=== PATIENT | male | born 1935 | race Caucasian/White ===

== ENCOUNTER → 2016-09-22 | Outpatient (CLI) | payer MEDICARE, BC | LOC: MW.CHFP 08:00 | PROVIDERS: ATTEND Emergency Medicine | DX: M54.5 Low back pain (principal); G89.29 Other chronic pain | CPT/HCPCS: G0463 ==

== ENCOUNTER → 2016-10-28 | Outpatient (CLI) | payer MEDICARE, BC, OTHER ==
--- NOTE | 2016-10-28 15:46 | CR ---
EXAMINATION: Right shoulder HISTORY: Other lesion COMPARISON: None TECHNIQUE: 3 views FINDINGS/IMPRESSION: There is a high riding right humerus suggesting underlying rotator cuff arthrop athy. Joint space narrowing and osteoarthritic changes are noted within the glenohumeral joint and m oderate acromioclavicular joint osteophytic changes noted. Bone mineralization appears normal withou t an acute osseous abnormality.
== END ==
LOC: MW.CHORTHO 07:57
PROVIDERS: ATTEND Orthopaedic Surgery
DX: M75.81 Other shoulder lesions, right shoulder (principal); M19.011 Primary osteoarthritis, right shoulder; M12.819 Other specific arthropathies, not elsewhere classified, unspecified shoulder; M25.511 Pain in right shoulder
CPT/HCPCS: 73030-26-RT; 73030-RT; G0463

== ENCOUNTER 2019-03-31 15:34 | Emergency (ER) | payer MEDICARE, OTHER ==
[2019-03-31] MEDS ORDERED: Sodium Chloride 0.9% 10 ML Syringe FLUSH PRN (15:59)
[2019-03-31] MEDS ORDERED: Sodium Chloride 0.9% 2.5 ML Syringe FLUSH PRN (15:59)
--- NOTE | 2019-03-31 15:59 | EDM.PDOC ---
ED HPI GENERAL MEDICAL PROBLEM - General Chief Complaint: Cardiovascular Problem Stated Complaint: shortness of breath Time Seen by Provider: 03/31/19 15:47 - History of Present Illness INITIAL COMMENTS - FREE TEXT/NARRATIVE: HISTORY AND PHYSICAL: History of present illness: Patient's an 84-year-old white male with history of pulmonary cancer and right upper lobectomy was approximately 1 week status post stent placement for an infrarenal aortic aneurysm patient has history of COPD and presents today with concern of exertional dyspnea he does not report ever having been told he has congestive heart failure he has had a prior myocardial infarction and was treated conservatively he denies chest pain and on arrival here without exertion states he is absolutely at his baseline and feels fine. Review of systems: As per history of present illness and below otherwise all systems reviewed and negative. Past medical history: As per history of present illness and as reviewed below otherwise noncontributory. Surgical history: As per history of present illness and as reviewed below otherwise noncontributory. Social history: No reported history of drug or alcohol abuse. Family history: As per history of present illness and as reviewed below otherwise noncontributory. Physical exam: HEENT: Atraumatic, normocephalic, pupils reactive, negative for conjunctival pallor or scleral icterus, mucous membranes moist, throat clear, neck supple, nontender, trachea midline. Lungs: Diminished no wheezing rhonchi or crackles, breath sounds equal bilaterally, chest nontender. Heart: S1S2, regular, negative for clicks, rubs, or JVD. Abdomen: Soft, nondistended, nontender. Negative for masses or hepatosplenomegaly. Negative for costovertebral tenderness. Pelvis: Stable nontender. Genitourinary: Deferred. Rectal: Deferred. Extremities: Atraumatic, negative for cords or calf pain. Neurovascular unremarkable. Neuro: Awake, alert, oriented. Cranial nerves II through XII unremarkable. Cerebellum unremarkable. Motor and sensory unremarkable throughout. Exam nonfocal. Diagnostics: CBC CMP troponin PT/INR BNP chest x-ray EKG Therapeutics: IV O2 monitor Impression: #1 exertional dyspnea #2 history of COPD #3 history of right upper lobectomy for pulmonary CVA #4 1 week status post infrarenal aortic aneurysm stent placement Definitive disposition and diagnosis as appropriate pending reevaluation and review of above. Back Pain Score (Numeric/FACES): 2 - Related Data Allergies Allergy/AdvReac Type Severity Reaction Status Date / Time dexamethasone Allergy Cannot Verified 03/31/19 15:46 Remember lorazepam [From Ativan] Allergy Hallucinati Verified 03/31/19 15:46 ons Sulfa (Sulfonamide Allergy unknown Verified 03/31/19 15:46 Antibiotics) Home Meds: Home Meds Allopurinol [Zyloprim] 300 mg PO DAILY 05/01/18 [History] Ascorbic Acid [Vitamin C] 1,000 mg PO DAILY 05/01/18 [History] Aspirin 81 mg PO DAILY 05/01/18 [History] Biotin 1 cap PO DAILY 05/01/18 [History] Ca/D3/Mag/Zinc/Ashlee/Nahun/Mgbor [Caltrate 600-D3-Min Chew Tab] 1 tab PO DAILY [History] Cholecalciferol (Vitamin D3) [Vitamin D] 5,000 units PO DAILY 05/01/18 [History] Cholesterol Success 2 tab PO BID 05/01/18 [History] Detoxin V/Chorella 2 cap PO DAILY 05/01/18 [History] Furosemide 0.5 dose PO DAILY 05/01/18 [History] Losartan [Cozaar] 100 mg PO DAILY 05/01/18 [History] Magnesium Oxide [Magnesium] 400 mg PO DAILY 05/01/18 [History] Mentor-3 Fatty Acids [Mentor-3] 1 dose PO DAILY 05/01/18 [History] Prednisolone Acetate/Pf [Prednisolone Acet 1% Eye Drop] 1 drop TOP ASDIRECTED [History] Sertraline [Zoloft] 1 dose PO DAILY 05/01/18 [History] atorvaSTATin [Lipitor] 20 mg PO BEDTIME 05/01/18 [History] oxyCODONE HCl/Acetaminophen [Oxycodone-Acetaminophen 5-325] 1 tab PO Q4HR PRN [History] Past Medical History HEENT History: Reports: Cataract, Hard of Hearing Cardiovascular History: Reports: CAD, Heart Valve Replacement, Hypertension, Stents Respiratory History: Reports: Other (See Below) Other Respiratory History: Lung Cancer s/p Right Upper Lobectomy Gastrointestinal History: Reports: None Genitourinary History: Reports: Other (See Below) Other Genitourinary History: Born with one kidney Musculoskeletal History: Reports: Arthritis Neurological History: Reports: None Psychiatric History: Reports: Panic Attack Endocrine/Metabolic History: Reports: None Hematologic History: Reports: None Immunologic History: Reports: None Oncologic (Cancer) History: Reports: Lung Dermatologic History: Reports: Psoriasis - Infectious Disease History Infectious Disease History: Reports: Chicken Pox, Measles - Past Surgical History Head Surgeries/Procedures: Reports: None HEENT Surgical History: Reports: Cataract Surgery Cardiovascular Surgical History: Reports: Coronary Artery Stent, Valve Replacement Respiratory Surgical History: Reports: Lung Resection GI Surgical History: Reports: None Male Surgical History: Reports: None Endocrine Surgical History: Reports: None Neurological Surgical History: Reports: Other (See Below) Musculoskeletal Surgical History: Reports: Hip Replacement, Knee Replacement, Shoulder Surgery Oncologic Surgical History: Reports: Other (See Below) Other Oncologic Surgeries/Procedures: right upper lobectomy Social & Family History - Family History Family Medical History: Noncontributory - Tobacco Use Smoking Status *Q: Unknown Ever Smoked - Caffeine Use Caffeine Use: Reports: None Other Caffeine Use: 2-3 cups in morning - Recreational Drug Use Recreational Drug Use: No ED ROS GENERAL - Review of Systems Review Of Systems: ROS reveals no pertinent complaints other than HPI. ED EXAM, GENERAL - Physical Exam Exam: See Below (Dictation) Course - Vital Signs Last Recorded V/S: Last Vital Signs Temp 36.3 C 03/31/19 15:43 Pulse 75 03/31/19 17:22 Resp 18 03/31/19 17:22 BP 153/76 H 03/31/19 17:22 Pulse Ox 95 03/31/19 17:22 - Orders/Labs/Meds Orders: Active Orders 24 hr Category Date Time Status Cardiac Monitoring [RC] . DIRECTED Care 03/31/19 15:59 Active EKG Documentation Completion [RC] STAT Care 03/31/19 15:39 Active Oxygen Therapy, ED [RC] ASDIRECTED Care 03/31/19 15:59 Active Chest 2V [CR] Stat Exams 03/31/19 15:39 Taken UA RFX ANNE AND CULT IF INDIC [URIN] Stat Lab 03/31/19 15:39 Ordered Sodium Chloride 0.9% [Saline Flush] Med 03/31/19 15:59 Active 10 ml FLUSH ASDIRECTED PRN Sodium Chloride 0.9% [Saline Flush] Med 03/31/19 15:59 Active 2.5 ml FLUSH ASDIRECTED PRN Saline Lock Insert [OM.PC] Stat Oth 03/31/19 15:59 Ordered Medication Orders Sodium Chloride (Saline Flush) 10 ml FLUSH ASDIRECTED PRN PRN Reason: Keep Vein Open Sodium Chloride (Saline Flush) 2.5 ml FLUSH ASDIRECTED PRN PRN Reason: Keep Vein Open Labs: Laboratory Tests 03/31/19 03/31/19 03/31/19 Range/Units 15:45 15:45 15:45 WBC 8.00 (4.0-11.0) K/uL RBC 4.01 L (4.50-5.90) M/uL Hgb 12.5 L (13.0-17.0) g/dL Hct 38.6 (38.0-50.0) % MCV 96.3 (80.0-98.0) fL MCH 31.2 (27.0-32.0) pg MCHC 32.4 (31.0-37.0) g/dL RDW Std Deviation 51.9 (28.0-62.0) fl RDW Coeff of So 15 (11.0-15.0) % Plt Count 240 (150-400) K/uL MPV 8.80 (7.40-12.00) fL Neut % (Auto) 66.3 (48.0-80.0) % Lymph % (Auto) 18.5 (16.0-40.0) % [place] % (Auto) 12.4 (0.0-15.0) % Eos % (Auto) 2.5 (0.0-7.0) % Baso % (Auto) 0.3 (0.0-1.5) % Neut # (Auto) 5.3 (1.4-5.7) K/uL Lymph # (Auto) 1.5 (0.6-2.4) K/uL [place] # (Auto) 1.0 H (0.0-0.8) K/uL Eos # (Auto) 0.2 (0.0-0.7) K/uL Baso # (Auto) 0.0 (0.0-0.1) K/uL Nucleated RBC % 0.0 /100WBC Nucleated RBCs # 0 K/uL Sodium 139 (136-148) mmol/L Potassium 3.8 (3.5-5.1) mmol/L Chloride 101 (98-107) mmol/L Carbon Dioxide 26.5 (21.0-32.0) mmol/L BUN 20 H (7.0-18.0) mg/dL Creatinine 1.4 H (0.8-1.3) mg/dL Est Cr Clr Drug Dosing 38.68 mL/min Estimated GFR (MDRD) 48.4 ml/min Glucose 88 (74-106) mg/dL Calcium 9.1 (8.5-10.1) mg/dL Total Bilirubin 0.4 (0.2-1.0) mg/dL AST 33 (15-37) IU/L ALT 23 (14-63) IU/L Alkaline Phosphatase 71 (46-116) U/L Troponin I 1.671 H* (0.000-0.056) ng/mL B-Natriuretic Peptide 1094 H (<100) PG/ML Total Protein 8.2 (6.4-8.2) g/dL Albumin 3.3 L (3.4-5.0) g/dL Globulin 4.9 H (2.6-4.0) g/dL Albumin/Globulin Ratio 0.7 L (0.9-1.6) Meds: Medications Generic Name Dose Route Start Last Admin Trade Name Freq PRN Reason Stop Dose Admin Sodium Chloride 10 ml 03/31/19 15:59 Saline Flush FLUSH ASDIRECTED PRN Keep Vein Open Sodium Chloride 2.5 ml 03/31/19 15:59 Saline Flush FLUSH ASDIRECTED PRN Keep Vein Open Discontinued Medications Generic Name Dose Route Start Last Admin Trade Name Freq PRN Reason Stop Dose Admin Furosemide 40 mg 03/31/19 17:14 03/31/19 17:22 Lasix IVPUSH 03/31/19 17:15 40 mg NOW ONE Administration Departure - Departure Time of Disposition: 17:42 Disposition: DC/Tfer to Acute Hospital 02 Reason for Transfer *Q: Other Condition: Good Clinical Impression: Congestive heart failure, Abnormal EKG, Elevated troponin Referrals: Denys Eisenberg MD [Primary Care Provider] - Forms: ED Department Discharge - My Orders Last 24 Hours: My Active Orders 03/31/19 15:59 Cardiac Monitoring [RC] . DIRECTED Oxygen Therapy, ED [RC] ASDIRECTED Sodium Chloride 0.9% [Saline Flush] 10 ml FLUSH ASDIRECTED PRN Sodium Chloride 0.9% [Saline Flush] 2.5 ml FLUSH ASDIRECTED PRN Saline Lock Insert [OM.PC] Stat - Assessment/Plan Last 24 Hours: My Active Orders 03/31/19 15:59 Cardiac Monitoring [RC] . DIRECTED Oxygen Therapy, ED [RC] ASDIRECTED Sodium Chloride 0.9% [Saline Flush] 10 ml FLUSH ASDIRECTED PRN Sodium Chloride 0.9% [Saline Flush] 2.5 ml FLUSH ASDIRECTED PRN Saline Lock Insert [OM.PC] Stat
[2019-03-31 16:49] LABS: CARBON DIOXIDE,CO2 26.5 mmol/L (21.0-32.0); POTASSIUM,K 3.8 mmol/L (3.5-5.1)
[2019-03-31] MEDS ORDERED: Furosemide 40 MG/4 ML VIAL IVPUSH ONE (17:14)
[2019-03-31 17:32] VITALS: PULSE 75
--- NOTE | 2019-03-31 17:50 | CR ---
Chest: Two views of the chest were obtained. Comparison: Previous chest x-ray of 05/01/18. Heart size is within normal limits. Elevated right hemidiaphragm is seen which is a stable finding. Heart size is slightly prominent. Previous sternotomy is noted. Atherosclerotic calcification is seen within the aortic knob. Lungs show no acute parenchymal change. Minimal blunting of the lateral left costophrenic angle is seen believed to be stable. Impression: Findings as noted above. Nothing acute is identified. Diagnostic code #2 MTDD
[2019-03-31] MEDS ORDERED: Heparin Sod,Pork In 0.45% Nacl 25,000 UNIT/500 ML IV.SOLN IV SCH (18:15)
[2019-03-31 18:28] VITALS: BP 145/78
== END 2019-03-31 18:47 ==
LOC: MW.ED 15:34
DX: I11.0 Hypertensive heart disease with heart failure (principal); I50.9 Heart failure, unspecified; R94.31 Abnormal electrocardiogram [ECG] [EKG]; R79.89 Other specified abnormal findings of blood chemistry; J44.9 Chronic obstructive pulmonary disease, unspecified; I25.2 Old myocardial infarction; I25.10 Atherosclerotic heart disease of native coronary artery without angina pectoris; H26.9 Unspecified cataract; M19.90 Unspecified osteoarthritis, unspecified site; Z88.2 Allergy status to sulfonamides; Z88.8 Allergy status to other drugs, medicaments and biological substances; Z98.890 Other specified postprocedural states; Z90.2 Acquired absence of lung [part of]; Z95.5 Presence of coronary angioplasty implant and graft; Z95.2 Presence of prosthetic heart valve; Z79.899 Other long term (current) drug therapy; Z79.82 Long term (current) use of aspirin; Z85.118 Personal history of other malignant neoplasm of bronchus and lung
CPT/HCPCS: 71046; 80053; 81001; 83880; 84484; 85025; 93005; 96365; 96375; 99285; J1644; J1940

== ENCOUNTER 2019-07-01 11:28 | Emergency (ER) | payer MEDICARE, OTHER ==
[~2019-07-01 11:28] MED LIST: fentaNYL 100 MCG/2 ML SDV ONE
[2019-07-01] MEDS ORDERED: EPINEPHrine 1:10,000 1 MG/10 ML Syringe IVPUSH ONE (11:29)
[2019-07-01] MEDS ORDERED: EPINEPHrine 1 MG/1 ML Amp IV ONE (11:29)
[2019-07-01] MEDS ORDERED: Aspirin 81 MG Tab.Chew ONE (11:30)
[2019-07-01] MEDS ORDERED: Sodium Chloride 0.9% 10 ML Syringe FLUSH PRN (11:35)
[2019-07-01] MEDS ORDERED: Sodium Chloride 0.9% 2.5 ML Syringe FLUSH PRN (11:35)
[2019-07-01] MEDS ORDERED: Sodium Chloride 0.9% 1,000 ML IV ONE (11:35)
[2019-07-01] MEDS ORDERED: Calcium Chloride 10% 1 GM/10 ML Syringe IVPUSH ONE (11:42)
[2019-07-01] MEDS ORDERED: fentaNYL 50 MCG/ML SDV IVPUSH ONE (11:42)
[2019-07-01] MEDS ORDERED: Atropine 0.1 MG/ML 10 ML Syringe IVPUSH ONE (11:42)
--- NOTE | 2019-07-01 12:14 | CR ---
Chest: Portable view of the chest was obtained. Comparison: Prior chest x-ray of 03/31/19. Heart size and mediastinum are within normal limits. Prior sternotomy is seen. Lungs are clear with no acute parenchymal change. Previous left shoulder surgery is noted. Impression: 1. Nothing acute is seen on portable chest x-ray. Diagnostic code #2 This report was dictated in [place] Standard Time
[2019-07-01] MEDS ORDERED: EPINEPHrine 1 MG in Dextrose 5% in Water 99 ML IV SCH ×2 (12:15)
[2019-07-01 12:19] LABS: BLOOD UREA NITROGEN,BUN 42 mg/dL (7.0-18.0); CARBON DIOXIDE,CO2 25.2 mmol/L (21.0-32.0); CHLORIDE,CL 104 mmol/L (98-107); GLUCOSE RANDOM 105 mg/dL (74-106); POTASSIUM,K 4.8 mmol/L (3.5-5.1); SODIUM,NA 139 mmol/L (136-148)
[2019-07-01 12:36] VITALS: BP 90/67; PULSE 60
[2019-07-01] MEDS ORDERED: Heparin Sod,Pork In 0.45% Nacl 25,000 UNIT/500 ML IV.SOLN IV SCH (12:45)
--- NOTE | 2019-07-01 13:03 | EDM.PDOC ---
ED [facility] GENERAL MEDICAL PROBLEM - General Chief Complaint: Cardiovascular Problem Stated Complaint: BROUGHT IN VIA AMBULANCE Time Seen by Provider: 07/01/19 11:30 Source of Information: Reports: Patient, Family History Limitations: Reports: No Limitations - History of Present Illness INITIAL COMMENTS - FREE TEXT/NARRATIVE: Pt is a 84 yo M with hx of CAD, CHF, CKD complaining of dizziness x 4 hours. Pt states he feels like he is going to pass out. Pt denies any chest pain, shortness of breath or abdominal pain. Onset was at rest. Per EMS, when they arrived, he was hypotensive with BP in 60/40s and bradycardic with rate in the 40s. He was AAOX3 but did not respond to atropine x 2 doses. They attempted to transcutaneously pace him with no capture. Pt transferred to the ED with minimal improvement with BP. Pt on arrival was mildly confused but able to provide some hx. Per family, he was recently seen by cardiology for an PR and had stents placed last month. In addition to that documented in the HPI above, the additional ROS was obtained : Constitutional: Denies fevers or chills Eyes: Denies vision changes ENMT: Denies sore throat CV: Denies chest pain Resp: Denies SOB GI: Denies vomiting or diarrhea : Denies painful urination MSK: Denies recent trauma Skin: Denies new rashes Neuro: Denies new numbness or tingling or weakness Endocrine: Denies unexpected weight loss Heme: Denies bleeding disorders I have reviewed the triage vital signs Const: Well nourished, well developed, appears stated age. Mild confusion Eyes: PERRL, no conjunctival injection HENT: NCAT, Neck supple without meningismus . No JVD CV: RRR, Warm, well-perfused extremities RESP: CTAB, Unlabored respiratory effort GI: soft, non-tender, non-distended, no masses MSK: No gross deformities appreciated Skin: Cool extremities. dry. No rashes Neuro: Alert, delivery representative II-XII grossly intact. Sensation and motor function of extremities grossly intact. Psych: Appropriate mood and affect Critical Care Procedure Note Authorized and Performed by: Dr. Vergara Total critical care time: Approximately 45 minutes Due to a high probability of clinically significant, life threatening deterioration, the patient required my highest level of preparedness to intervene emergently and I personally spent this critical care time directly and personally managing the patient. This critical care time included obtaining a history; examining the patient; pulse oximetry; ordering and review of studies ; arranging urgent treatment with development of a management plan; evaluation of patient's response to treatment; frequent reassessment; and, discussions with other providers. This critical care time was performed to assess and manage the high probability of imminent, life-threatening deterioration that could result in multi-organ failure. It was exclusive of separately billable procedures and treating other patients and teaching time. Please see MDM section and the rest of the note for further information on patient assessment and treatment. Assessment and plan: Patient is an 84-year-old male presenting with dizziness. Patient was initially hypotensive and bradycardic. Patient was given 0.5 mg of atropine without any improvement. Patient was subsequently given 1 g of calcium in case EKG changes were related to hyperkalemia. There is minimal improvement with these interventions and therefore the patient was started on an epinephrine drip. There is a delay in get the epinephrine drip from pharmacy and therefore a drip had to be created from 1 mg of epinephrine placed in 1 L of normal saline. Patient was started at 1.0 mcg/hr. Patient's heart rate and blood pressure improved into the heart rate of in the 70s and blood pressure in the 150s over 80s. Serial EKGs were performed and not demonstrate any evidence of ST elevation myocardial infarction. Labs came back and demonstrated elevated troponin at 0.206. Patient was given aspirin and started on a heparin drip. In addition, given the patient's requirement for pressors, the a left femoral triple-lumen central venous catheter was placed. This case was discussed with emergency medicine physician at [place], Dr. Murrieta who accepted the patient. Final diagnosis was NSTEMI and given patient's critical condition the patient was transferred to [facility] for cardiology. Other differential diagnosis include pulmonary embolism which seems less likely given patient's EKG and junctional rhythm. Sepsis was considered however it also seems less likely given the patient's cool extremities and bradycardia. In addition, patient was not hyperthermic. Patient was transferred without any deterioration. Back Pain Score (Numeric/FACES): 7 - Related Data Allergies Allergy/AdvReac Type Severity Reaction Status Date / Time dexamethasone Allergy Cannot Verified 07/01/19 12:19 Remember lorazepam [From Ativan] Allergy Hallucinati Verified 07/01/19 12:19 ons Sulfa (Sulfonamide Allergy unknown Verified 07/01/19 12:19 Antibiotics) Home Meds: Home Meds Aspirin 81 mg PO DAILY 05/01/18 [History] Furosemide 20 mg PO DAILY PRN 05/01/18 [History] Prednisolone Acetate/Pf [Prednisolone Acet 1% Eye Drop] 1 drop EYEBOTH DAILY [History] Sertraline [Zoloft] 100 mg PO DAILY 05/01/18 [History] Albuterol Sulfate [Albuterol Sulfate Hfa] 2 puff INH Q4H PRN 07/01/19 [History] Clopidogrel [Plavix] 75 mg PO DAILY 07/01/19 [History] Cyclobenzaprine [Flexeril] 10 mg PO TID PRN 07/01/19 [History] Lactulose [Chronulac] 30 ml PO DAILY PRN 07/01/19 [History] Melatonin 3 mg PO BEDTIME PRN 07/01/19 [History] Metoprolol Succinate [Toprol XL] 12.5 mg PO DAILY 07/01/19 [History] Propylene Glycol/PEG 400/Pf [Systane 0.3-0.4% Eye Drops] 2 drop EYEBOTH Q4H PRN 07/01/19 [History] Rosuvastatin [Crestor] 20 mg PO BEDTIME 07/01/19 [History] oxyCODONE HCl/Acetaminophen [Endocet 7.5-325 mg Tablet] 1 tab PO BID PRN [History] Past Medical History HEENT History: Reports: Cataract, Hard of Hearing Cardiovascular History: Reports: CAD, Heart Valve Replacement, Hypertension, Stents Respiratory History: Reports: Other (See Below) Other Respiratory History: Lung Cancer s/p Right Upper Lobectomy Gastrointestinal History: Reports: None Genitourinary History: Reports: Other (See Below) Other Genitourinary History: Born with one kidney Musculoskeletal History: Reports: Arthritis Neurological History: Reports: None Psychiatric History: Reports: Panic Attack Endocrine/Metabolic History: Reports: None Hematologic History: Reports: None Immunologic History: Reports: None Oncologic (Cancer) History: Reports: Lung Dermatologic History: Reports: Psoriasis - Infectious Disease History Infectious Disease History: Reports: Chicken Pox, Measles, Mumps - Past Surgical History Head Surgeries/Procedures: Reports: None HEENT Surgical History: Reports: Cataract Surgery Cardiovascular Surgical History: Reports: Coronary Artery Stent, Valve Replacement Respiratory Surgical History: Reports: Lung Resection GI Surgical History: Reports: None Male Surgical History: Reports: None Endocrine Surgical History: Reports: None Neurological Surgical History: Reports: Other (See Below) Musculoskeletal Surgical History: Reports: Hip Replacement, Knee Replacement, Shoulder Surgery Oncologic Surgical History: Reports: Other (See Below) Other Oncologic Surgeries/Procedures: right upper lobectomy Social & Family History - Family History Family Medical History: Noncontributory - Tobacco Use Smoking Status *Q: Never Smoker Second Hand Smoke Exposure: No - Caffeine Use Caffeine Use: Reports: None Other Caffeine Use: 2-3 cups in morning - Recreational Drug Use Recreational Drug Use: No ED ROS GENERAL - Review of Systems Review Of Systems: See Below ED EXAM, GENERAL - Physical Exam Exam: See Below ED CARDIOLOGY PROCEDURES - Additional/Other Procedure(s) Other (Free Text) Procedure(s): Procedure note: Central venous line Location: Left femoral vein Candidate vein examined with linear array probe - confirmed collapsibility, lack of pulsatility, and proper anatomic location. 5 cc local anesthesia provided via infiltration of 1% lidocaine w/o epi Using aseptic technique, IV catheter inserted with flash of blood noted, flow of venous blood confirmed. Flushes easily and without pain. Venous blood gas confirms placement .no hematoma or complications noted. Patient tolerated well. Course - Vital Signs Last Recorded V/S: Last Vital Signs Temp 35.3 C 07/01/19 12:00 Pulse 60 07/01/19 12:22 Resp 18 07/01/19 12:00 BP 90/67 07/01/19 12:22 Pulse Ox 90 L 07/01/19 12:22 - Orders/Labs/Meds Orders: Active Orders 24 hr Category Date Time Status EKG Documentation Completion [RC] STAT Care 07/01/19 11:43 Active Insert Menendez Catheter [Insert Urinary Catheter] [OM.PC] Care 07/01/19 12:30 Ordered Q24H Urinary Catheter Assessment [RC] ASDIRECTED Care 07/01/19 14:04 Active EPINEPHrine [Adrenalin] 1 mg Med 07/01/19 12:15 Active Dextrose 5% in Water 99 ml IV TITRATE Heparin Sod,Pork In 0.45% Nacl [Heparin-1/2Ns 25,000 Med 07/01/19 12:45 Active Units/500] 25,000 unit in 500 ml IV TITRATE Sodium Chloride 0.9% [Saline Flush] Med 07/01/19 11:35 Active 10 ml FLUSH ASDIRECTED PRN Sodium Chloride 0.9% [Saline Flush] Med 07/01/19 11:35 Active 2.5 ml FLUSH ASDIRECTED PRN Saline Lock Insert [OM.PC] Stat Oth 07/01/19 11:35 Ordered Medication Orders Epinephrine HCl 1 mg/ Dextrose (/Water) 100 mls @ 58.8 mls/hr IV TITRATE CYDNEY; Protocol Last Admin: 07/01/19 12:48 Dose: 0.1 mcg/kg/min, 58.8 mls/hr Heparin Sodium/Sodium Chloride (Heparin-1/2ns 25,000 Units/500) 25,000 unit in 500 mls @ 23.52 mls/hr IV TITRATE CYDNEY; Protocol Last Admin: 07/01/19 12:47 Dose: 12 units/kg/hr, 23.52 mls/hr Sodium Chloride (Saline Flush) 10 ml FLUSH ASDIRECTED PRN PRN Reason: Keep Vein Open Last Admin: 07/01/19 12:47 Dose: 10 ml Sodium Chloride (Saline Flush) 2.5 ml FLUSH ASDIRECTED PRN PRN Reason: Keep Vein Open Last Admin: 07/01/19 12:47 Dose: 2.5 ml Labs: Laboratory Tests 07/01/19 07/01/19 07/01/19 Range/Units 11:30 11:30 11:30 WBC 7.59 (4.0-11.0) K/uL RBC 4.02 L (4.50-5.90) M/uL Hgb 12.4 L (13.0-17.0) g/dL Hct 38.5 (38.0-50.0) % MCV 95.8 (80.0-98.0) fL MCH 30.8 (27.0-32.0) pg MCHC 32.2 (31.0-37.0) g/dL RDW Std Deviation 51.9 (28.0-62.0) fl RDW Coeff of So 15 (11.0-15.0) % Plt Count 186 (150-400) K/uL MPV 9.40 (7.40-12.00) fL Neut % (Auto) 62.6 (48.0-80.0) % Lymph % (Auto) 25.8 (16.0-40.0) % Jennings % (Auto) 9.1 (0.0-15.0) % Eos % (Auto) 2.2 (0.0-7.0) % Baso % (Auto) 0.3 (0.0-1.5) % Neut # (Auto) 4.8 (1.4-5.7) K/uL Lymph # (Auto) 2.0 (0.6-2.4) K/uL Jennings # (Auto) 0.7 (0.0-0.8) K/uL Eos # (Auto) 0.2 (0.0-0.7) K/uL Baso # (Auto) 0.0 (0.0-0.1) K/uL Nucleated RBC % 0.0 /100WBC Nucleated RBCs # 0 K/uL INR 1.06 Sodium 139 (136-148) mmol/L Potassium 4.8 (3.5-5.1) mmol/L Chloride 104 (98-107) mmol/L Carbon Dioxide 25.2 (21.0-32.0) mmol/L BUN 42 H (7.0-18.0) mg/dL Creatinine 2.2 H (0.8-1.3) mg/dL Est Cr Clr Drug Dosing TNP Estimated GFR (MDRD) 28.7 ml/min Glucose 105 (74-106) mg/dL Calcium 9.1 (8.5-10.1) mg/dL Total Bilirubin 0.4 (0.2-1.0) mg/dL AST 23 (15-37) IU/L ALT 28 (14-63) IU/L Alkaline Phosphatase 55 (46-116) U/L Troponin I 0.206 H* (0.000-0.056) ng/mL Total Protein 7.1 (6.4-8.2) g/dL Albumin 3.4 (3.4-5.0) g/dL Globulin 3.7 (2.6-4.0) g/dL Albumin/Globulin Ratio 0.9 (0.9-1.6) Urine Color Urine Appearance Urine pH (5.0-8.0) Ur Specific Garrison (1.001-1.035) Urine Protein (NEGATIVE) mg/dL Urine Glucose (UA) (NEGATIVE) mg/dL Urine Ketones (NEGATIVE) mg/dL Urine Occult Blood (NEGATIVE) Urine Nitrite (NEGATIVE) Urine Bilirubin (NEGATIVE) Urine Urobilinogen (<2.0) EU/dL Ur Leukocyte Esterase (NEGATIVE) Urine RBC (0-2/HPF) Urine WBC (0-5/HPF) Ur Epithelial Cells (NONE-FEW) Urine Bacteria (NEGATIVE) 07/01/19 Range/Units 13:10 WBC (4.0-11.0) K/uL RBC (4.50-5.90) M/uL Hgb (13.0-17.0) g/dL Hct (38.0-50.0) % MCV (80.0-98.0) fL MCH (27.0-32.0) pg MCHC (31.0-37.0) g/dL RDW Std Deviation (28.0-62.0) fl RDW Coeff of So (11.0-15.0) % Plt Count (150-400) K/uL MPV (7.40-12.00) fL Neut % (Auto) (48.0-80.0) % Lymph % (Auto) (16.0-40.0) % Jennings % (Auto) (0.0-15.0) % Eos % (Auto) (0.0-7.0) % Baso % (Auto) (0.0-1.5) % Neut # (Auto) (1.4-5.7) K/uL Lymph # (Auto) (0.6-2.4) K/uL Jennings # (Auto) (0.0-0.8) K/uL Eos # (Auto) (0.0-0.7) K/uL Baso # (Auto) (0.0-0.1) K/uL Nucleated RBC % /100WBC Nucleated RBCs # K/uL INR Sodium (136-148) mmol/L Potassium (3.5-5.1) mmol/L Chloride (98-107) mmol/L Carbon Dioxide (21.0-32.0) mmol/L BUN (7.0-18.0) mg/dL Creatinine (0.8-1.3) mg/dL Est Cr Clr Drug Dosing Estimated GFR (MDRD) ml/min Glucose (74-106) mg/dL Calcium (8.5-10.1) mg/dL Total Bilirubin (0.2-1.0) mg/dL AST (15-37) IU/L ALT (14-63) IU/L Alkaline Phosphatase (46-116) U/L Troponin I (0.000-0.056) ng/mL Total Protein (6.4-8.2) g/dL Albumin (3.4-5.0) g/dL Globulin (2.6-4.0) g/dL Albumin/Globulin Ratio (0.9-1.6) Urine Color YELLOW Urine Appearance CLEAR Urine pH 6.0 (5.0-8.0) Ur Specific Garrison 1.025 (1.001-1.035) Urine Protein 30 H (NEGATIVE) mg/dL Urine Glucose (UA) NEGATIVE (NEGATIVE) mg/dL Urine Ketones NEGATIVE (NEGATIVE) mg/dL Urine Occult Blood NEGATIVE (NEGATIVE) Urine Nitrite NEGATIVE (NEGATIVE) Urine Bilirubin NEGATIVE (NEGATIVE) Urine Urobilinogen 0.2 (<2.0) EU/dL Ur Leukocyte Esterase NEGATIVE (NEGATIVE) Urine RBC 0-3 (0-2/HPF) Urine WBC 0-3 (0-5/HPF) Ur Epithelial Cells FEW (NONE-FEW) Urine Bacteria FEW (NEGATIVE) Meds: Medications Generic Name Dose Route Start Last Admin Trade Name Freq PRN Reason Stop Dose Admin Epinephrine HCl 1 mg/ Dextrose 100 mls @ 58.8 mls/hr 07/01/19 12:15 07/01/19 12:48 /Water IV 0.1 mcg/kg/min TITRATE CYDNEY 58.8 mls/hr Administration Protocol 0.1 MCG/KG/MIN Heparin Sodium/Sodium Chloride 25,000 unit in 500 mls @ 23.52 mls/hr 07/01/19 12:45 07/01/19 12:47 Heparin-1/2ns 25,000 Units/500 IV 12 units/kg/hr TITRATE CYDNEY 23.52 mls/hr Administration Protocol 12 UNITS/KG/HR Sodium Chloride 10 ml 07/01/19 11:35 07/01/19 12:47 Saline Flush FLUSH 10 ml ASDIRECTED PRN Administration Keep Vein Open Sodium Chloride 2.5 ml 07/01/19 11:35 07/01/19 12:47 Saline Flush FLUSH 2.5 ml ASDIRECTED PRN Administration Keep Vein Open Discontinued Medications Generic Name Dose Route Start Last Admin Trade Name Vinicius PRN Reason Stop Dose Admin Aspirin Confirm 07/01/19 11:30 07/01/19 12:48 Aspirin Administered 07/01/19 11:31 324 mg Dose Administration 324 mg .ROUTE .STK-MED ONE Atropine Sulfate 0.5 mg 07/01/19 11:42 07/01/19 12:46 Atropine 0.1 Mg/Ml IVPUSH 07/01/19 11:43 0.5 mg ONETIME ONE Administration Calcium Chloride 1 gm 07/01/19 11:42 07/01/19 14:04 Calcium Chloride 10% IVPUSH 07/01/19 11:43 1 gm ONETIME ONE Administration Epinephrine HCl 1 mg 07/01/19 11:29 Epinephrine 1:10,000 IVPUSH 07/01/19 11:30 .STK-MED ONE Epinephrine HCl 1 mg 07/01/19 11:29 Adrenalin IV 07/01/19 11:30 .STK-MED ONE Fentanyl 100 mcg 07/01/19 11:42 07/01/19 12:48 Fentanyl IVPUSH 07/01/19 11:43 Not Given ONETIME ONE Fentanyl Confirm 07/01/19 11:28 07/01/19 12:46 Sublimaze Administered 07/01/19 11:29 50 mcg Dose Administration 100 mcg .ROUTE .STK-MED ONE Sodium Chloride 1,000 mls @ 999 mls/hr 07/01/19 11:35 07/01/19 12:48 Normal Saline IV 07/01/19 12:35 999 mls/hr .Bolus ONE Administration Departure - Departure Time of Disposition: 13:02 Disposition: DC/Tfer to Acute Hospital 02 Preliminary Cause of *Q: Other_Special Instruction Reason for Transfer *Q: Other Clinical Impression: NSTEMI (non-ST elevated myocardial infarction) Instructions: Heart Attack Referrals: PCP,Unknown [Primary Care Provider] - Forms: ED Department Discharge Sepsis Event Note - Evaluation Sepsis Screening Result: No Definite Risk - Focused Exam Vital Signs: Vital Signs Temp Pulse Resp BP Pulse Ox 07/01/19 12:22 60 90/67 90 L 07/01/19 12:11 87 151/125 H 99 07/01/19 12:05 49 L 150/117 H 86 L 07/01/19 12:00 35.3 C 40 L 18 129/106 H 95 07/01/19 11:57 52 L 156/73 H 99 07/01/19 11:53 72 122/68 80 L 07/01/19 11:45 53 L 119/59 L 89 L 07/01/19 11:38 52 L 96/51 L 99 07/01/19 11:32 48 L 67/36 L 99 Date Exam was Performed: 07/01/19 Time Exam was Performed: 16:50 - Problem List Review Problem List Initiated/Reviewed/Updated: Yes - My Orders Last 24 Hours: My Active Orders 07/01/19 11:35 Sodium Chloride 0.9% [Saline Flush] 10 ml FLUSH ASDIRECTED PRN Sodium Chloride 0.9% [Saline Flush] 2.5 ml FLUSH ASDIRECTED PRN Saline Lock Insert [OM.PC] Stat 07/01/19 11:43 EKG Documentation Completion [RC] STAT 07/01/19 12:15 EPINEPHrine [Adrenalin] 1 mg Dextrose 5% in Water 99 ml IV TITRATE 07/01/19 12:30 Insert Menendez Catheter [Insert Urinary Catheter] [OM.PC] Q24H 07/01/19 12:45 Heparin Sod,Pork In 0.45% Nacl [Heparin-1/2Ns 25,000 Units/500] 25,000 unit in 500 ml IV TITRATE 07/01/19 14:04 Urinary Catheter Assessment [RC] ASDIRECTED - Assessment/Plan Last 24 Hours: My Active Orders 07/01/19 11:35 Sodium Chloride 0.9% [Saline Flush] 10 ml FLUSH ASDIRECTED PRN Sodium Chloride 0.9% [Saline Flush] 2.5 ml FLUSH ASDIRECTED PRN Saline Lock Insert [OM.PC] Stat 07/01/19 11:43 EKG Documentation Completion [RC] STAT 07/01/19 12:15 EPINEPHrine [Adrenalin] 1 mg Dextrose 5% in Water 99 ml IV TITRATE 07/01/19 12:30 Insert Menendez Catheter [Insert Urinary Catheter] [OM.PC] Q24H 07/01/19 12:45 Heparin Sod,Pork In 0.45% Nacl [Heparin-1/2Ns 25,000 Units/500] 25,000 unit in 500 ml IV TITRATE 07/01/19 14:04 Urinary Catheter Assessment [RC] ASDIRECTED
== END 2019-07-01 14:24 ==
LOC: MW.ED 11:28
DX: I21.4 Non-ST elevation (NSTEMI) myocardial infarction (principal); I25.10 Atherosclerotic heart disease of native coronary artery without angina pectoris; I13.0 Hypertensive heart and chronic kidney disease with heart failure and stage 1 through stage 4 chronic kidney disease, or unspecified chronic kidney disease; N18.9 Chronic kidney disease, unspecified; I50.9 Heart failure, unspecified; F41.0 Panic disorder [episodic paroxysmal anxiety]; Z95.5 Presence of coronary angioplasty implant and graft; Z88.8 Allergy status to other drugs, medicaments and biological substances; Z88.2 Allergy status to sulfonamides; Z79.82 Long term (current) use of aspirin; Z79.899 Other long term (current) drug therapy; Z79.01 Long term (current) use of anticoagulants; Z95.2 Presence of prosthetic heart valve; Z85.118 Personal history of other malignant neoplasm of bronchus and lung; Z79.02 Long term (current) use of antithrombotics/antiplatelets
CPT/HCPCS: 36415; 36556; 51702; 71045; 80053; 81001; 84484; 85025; 85610; 93005; 96361; 96365; 96366; 96375; 99291; A9270; J0171; J0461; J1644; J3010; J7030; J7060; 99285

== ENCOUNTER 2020-05-13 12:07 | Emergency (ER) | payer MEDICARE, OTHER ==
--- NOTE | 2020-05-13 12:10 | EDM.PDOC ---
ED [facility] GENERAL MEDICAL PROBLEM - General Chief Complaint: Respiratory Problem Stated Complaint: NO APPETITE Time Seen by Provider: 05/13/20 12:09 Source of Information: Reports: Patient, Old Records History Limitations: Reports: No Limitations - History of Present Illness INITIAL COMMENTS - FREE TEXT/NARRATIVE: There is a very pleasant 85-year-old gentleman with a past medical history of coronary artery disease, stage I lung adenocarcinoma, s/p prosthetic aortic valve replacement, COPD, heart failure with reduced ejection fraction, renal artery occlusion, status post pacemaker placement, abdominal aortic aneurysm, chronic kidney disease, hyperlipidemia presenting with dyspnea. He presents to the emergency department today complaining of about 4 days of gradually worsening shortness of breath along with fatigue and anorexia. He has not had any appetite for the past several days. His breathing got gradually worse today which prompted his emergency department presentation. Denies any fever, cough, chest discomfort, hemoptysis, vomiting, diarrhea, bloody emesis or stools, or abdominal pain. He does complain of midline low thoracic/high lumbar pain which has been present for several years and is not any different today, no history of recent trauma to the back. ROS: A 10-point review of systems was negative, except as noted in the HPI (or in the ROS section of this note). Past medical history: Reviewed, no additional pertinent history. Surgical history: Reviewed in system, no additional pertinent history. Social history: Reviewed in system, no additional pertinent history. Family history: Reviewed in system, no additional pertinent history. PHYSICAL EXAM Vital signs reviewed. Nursing notes reviewed. Constitutional: Awake, alert, appears uncomfortable. Head: Normocephalic, atraumatic. Eyes: EOMI, conjunctiva normal, no discharge, no scleral icterus. Ears, Nose, Throat: External ears and nose normal, moist oral mucosa. Cardiovascular: 2+ radial pulses bilaterally, capillary refill less than 2 seconds. Pulmonary: Mildly increased work of breathing, speaking in 4-5 word sentences, no accessory muscle use. Abdomen/GI: Soft, nontender, nondistended, no guarding or rigidity, no masses. No pulsatile mass. Musculoskeletal: No deformities. Mild midline tenderness to the low thoracic/upper lumbar vertebrae. Integumentary: Appropriate color for ethnicity, warm, dry, no pallor or jaundice, no rash. Neurologic: Alert, answering questions appropriately, normal speech, no facial droop, moving all extremities well. Psychiatric: Appropriate mood and affect, normal thought process. This patient was seen and evaluated during the 2019 SARS-CoV-2 novel coronavirus pandemic period. Community viral transmission is ongoing at time of this encounter and the emergency department is operating under pandemic response procedures. - Related Data Allergies Allergy/AdvReac Type Severity Reaction Status Date / Time dexamethasone Allergy Cannot Verified 05/13/20 12:21 Remember lorazepam [From Ativan] Allergy Hallucinati Verified 05/13/20 12:21 ons Sulfa (Sulfonamide Allergy unknown Verified 05/13/20 12:21 Antibiotics) Home Meds: Home Meds Aspirin 81 mg PO DAILY 05/01/18 [History] Furosemide 20 mg PO DAILY PRN 05/01/18 [History] Prednisolone Acetate/Pf [Prednisolone Acet 1% Eye Drop] 1 drop EYEBOTH DAILY 05/01/18 [History] Sertraline [Zoloft] 100 mg PO DAILY 05/01/18 [History] Albuterol Sulfate [Albuterol Sulfate Hfa] 2 puff INH Q4H PRN 07/01/19 [History] Clopidogrel [Plavix] 75 mg PO DAILY 07/01/19 [History] Cyclobenzaprine [Flexeril] 10 mg PO TID PRN 07/01/19 [History] Lactulose [Chronulac] 30 ml PO DAILY PRN 07/01/19 [History] Melatonin 3 mg PO BEDTIME PRN 07/01/19 [History] Metoprolol Succinate [Toprol XL] 12.5 mg PO DAILY 07/01/19 [History] Propylene Glycol/PEG 400/Pf [Systane 0.3-0.4% Eye Drops] 2 drop EYEBOTH Q4H PRN 07/01/19 [History] Rosuvastatin [Crestor] 20 mg PO BEDTIME 07/01/19 [History] oxyCODONE HCl/Acetaminophen [Endocet 7.5-325 mg Tablet] 1 tab PO BID PRN 07/01/19 [History] Past Medical History HEENT History: Reports: Cataract, Hard of Hearing Cardiovascular History: Reports: CAD, Heart Valve Replacement, Hypertension, Stents Respiratory History: Reports: Other (See Below) Other Respiratory History: Lung Cancer s/p Right Upper Lobectomy Gastrointestinal History: Reports: None Genitourinary History: Reports: Other (See Below) Other Genitourinary History: Born with one kidney Musculoskeletal History: Reports: Arthritis Neurological History: Reports: None Psychiatric History: Reports: Panic Attack Endocrine/Metabolic History: Reports: None Hematologic History: Reports: None Immunologic History: Reports: None Oncologic (Cancer) History: Reports: Lung Dermatologic History: Reports: Psoriasis - Infectious Disease History Infectious Disease History: Reports: Chicken Pox, Measles, Mumps - Past Surgical History Head Surgeries/Procedures: Reports: None HEENT Surgical History: Reports: Cataract Surgery Cardiovascular Surgical History: Reports: Coronary Artery Stent, Valve Replacement Respiratory Surgical History: Reports: Lung Resection GI Surgical History: Reports: None Male Surgical History: Reports: None Endocrine Surgical History: Reports: None Neurological Surgical History: Reports: Other (See Below) Musculoskeletal Surgical History: Reports: Hip Replacement, Knee Replacement, Shoulder Surgery Oncologic Surgical History: Reports: Other (See Below) Other Oncologic Surgeries/Procedures: right upper lobectomy Social & Family History - Family History Family Medical History: No Pertinent Family History - Caffeine Use Caffeine Use: Reports: None Other Caffeine Use: 2-3 cups in morning ED ROS GENERAL - Review of Systems Review Of Systems: See Below ED EXAM, GENERAL - Physical Exam Exam: See Below #1 Interpretation EKG Interpretation Comments: 12-Lead ECG Interpretation Acquired: 12:10 PM Rhythm: Paced rhythm Rate: 86 bpm [place]: Normal Intervals: Normal Ectopy: None Acute Ischemic Changes: None apparent Interpretation: No STEMI Course - Vital Signs Text/Narrative:: 85-year-old gentleman presenting with several days of shortness of breath, anorexia, and fatigue. Differential diagnosis includes but is not limited to: COVID-19 infection, pneumonia, sepsis, less likely acute coronary syndrome, less likely pulmonary embolism, congestive heart failure, less likely thoracic aortic dissection, pleural effusion, pulmonary edema, anemia, electrolyte disturbance, etc. 12:54: Patient does appear somewhat dyspneic and is speaking in 4-5 word sentences, placed on nasal cannula oxygen. Twelve-lead EKG looks nonischemic, shows paced rhythm. I reviewed the chest x-ray which shows cardiomegaly, dual- chamber pacemaker, sternotomy wires, no obvious infiltrate or pulmonary edema, no pneumothorax. We are waiting on labs. 1:58: CBC shows normal cell lines. INR is normal. Venous blood gas is also reassuring. Lactate is normal. Metabolic panel shows sodium 133, creatinine 2.5, slightly increased from baseline of 2.1-2.2. Troponin is elevated 0.295, BNP is 1220, TSH 5.66. Chest x-ray is clear. Patient's oxygen saturations are in the low 90s off of oxygen, which is expected and COPD. We are going to obtain a CT pulmonary angiogram to evaluate for pulmonary embolism given elevated troponin with several days of shortness of breath and a clear appearing chest x-ray. I did review the twelve-lead EKG, showed no obvious ischemic pattern in the context of a paced rhythm. Patient will need to be transferred to another hospital that has cardiology available. 2:46: I reviewed the CT pulmonary angiogram study. I see no large central PE. The patient does have multiple peripheral groundglass opacities concerning for viral pneumonia. Patient is hypoxic while asleep to the low 80s so he remains on oxygen. We are going to start him on heparin given the NSTEMI. He continues to deny any chest discomfort. He will need to be transferred to another hospital. We are awaiting radiology read and COVID testing. 3:01 PM: CT pulmonary angiogram demonstrates mild cardiomegaly, cardiac pacemaker placement, groundglass infiltrates present bilaterally, concerning for COVID-19 pneumonia, no evidence of pulmonary arterial filling defect. We are awaiting COVID-19 test to return. 4:19 PM: COVID-19 testing is positive. Second troponin is drawn and pending. He has been started on a heparin infusion. We will transfer the patient to [facility] in [place] for further work-up and treatment. I spoke with Dr. Buenrostro the accepting emergency physician. We are arranging ambulance transport. Patient is resting comfortably. 4:46 PM: Repeat troponin decreased to 0.076. We are awaiting EMS transport to the accepting hospital. Last Recorded V/S: Last Vital Signs Temp 36.2 C 05/13/20 12:18 Pulse 78 05/13/20 15:22 Resp 16 05/13/20 12:18 BP 111/60 05/13/20 15:22 Pulse Ox 98 05/13/20 15:22 - Orders/Labs/Meds Orders: Active Orders 24 hr Category Date Time Status Cardiac Monitoring [RC] . DIRECTED Care 05/13/20 12:18 Active EKG Documentation Completion [RC] STAT Care 05/13/20 12:18 Active Pulse Oximetry [RC] ASDIRECTED Care 05/13/20 12:18 Active UA W/ANNE RFLX IF INDICATED [URIN] Stat Lab 05/13/20 12:31 Ordered Heparin Sodium/0.45% NaCl [Heparin 25,000 Units in 1/2 Med 05/13/20 14:45 Active NS 500 ML] 500 ml IV TITRATE Sodium Chloride 0.9% [Saline Flush] Med 05/13/20 12:18 Active 10 ml FLUSH ASDIRECTED PRN Sodium Chloride 0.9% [Saline Flush] Med 05/13/20 12:18 Active 2.5 ml FLUSH ASDIRECTED PRN Saline Lock Insert [OM.PC] Stat Oth 05/13/20 12:19 Ordered Medication Orders Heparin Sodium/Sodium Chloride (Heparin 25,000 Units In 1/2 Ns 500 Ml) 500 mls @ 21.12 mls/hr IV TITRATE CYDNEY; Protocol Last Admin: 05/13/20 15:13 Dose: 12 units/kg/hr, 21.12 mls/hr Documented by: FLORENTIN Cosigned by: AI Sodium Chloride (Saline Flush) 10 ml FLUSH ASDIRECTED PRN PRN Reason: Keep Vein Open Last Admin: 05/13/20 12:50 Dose: 10 ml Documented by: FLORENTIN Sodium Chloride (Saline Flush) 2.5 ml FLUSH ASDIRECTED PRN PRN Reason: Keep Vein Open Last Admin: 05/13/20 12:51 Dose: 2.5 ml Documented by: FLORENTIN Labs: Laboratory Tests 05/13/20 05/13/20 05/13/20 Range/Units 12:48 12:48 12:48 WBC (4.0-11.0) K/uL RBC (4.50-5.90) M/uL Hgb (13.0-17.0) g/dL Hct (38.0-50.0) % MCV (80.0-98.0) fL MCH (27.0-32.0) pg MCHC (31.0-37.0) g/dL RDW Std Deviation (28.0-62.0) fl RDW Coeff of So (11.0-15.0) % Plt Count (150-400) K/uL MPV (7.40-12.00) fL Neut % (Auto) (48.0-80.0) % Lymph % (Auto) (16.0-40.0) % [place] % (Auto) (0.0-15.0) % Eos % (Auto) (0.0-7.0) % Baso % (Auto) (0.0-1.5) % Neut # (Auto) (1.4-5.7) K/uL Lymph # (Auto) (0.6-2.4) K/uL [place] # (Auto) (0.0-0.8) K/uL Eos # (Auto) (0.0-0.7) K/uL Baso # (Auto) (0.0-0.1) K/uL Nucleated RBC % /100WBC Nucleated RBCs # K/uL INR 1.11 APTT (18.6-31.3) SEC VBG pH (7.31-7.41) VBG pCO2 (35-45) mmHG VBG pO2 (30-40) mmHG VBG HCO3 (22-30) mEq/L VBG Total CO2 (41-51) mmol/L VBG Base Excess (-3.0-3.0) Lactate 1.9 (0.20-2.00) mmol/L Sodium 133 L (136-148) mmol/L Potassium 4.5 (3.5-5.1) mmol/L Chloride 99 (98-107) mmol/L Carbon Dioxide 23.3 (21.0-32.0) mmol/L BUN 32 H (7.0-18.0) mg/dL Creatinine 2.5 H (0.8-1.3) mg/dL Est Cr Clr Drug Dosing TNP Estimated GFR (MDRD) 24.7 ml/min Glucose 103 (74-106) mg/dL Calcium 8.3 L (8.5-10.1) mg/dL Total Bilirubin 0.5 (0.2-1.0) mg/dL AST 50 H (15-37) IU/L ALT 32 (14-63) IU/L Alkaline Phosphatase 67 (46-116) U/L Troponin I 0.295 H* (0.000-0.056) ng/mL B-Natriuretic Peptide (<100) PG/ML Total Protein 8.4 H (6.4-8.2) g/dL Albumin 3.6 (3.4-5.0) g/dL Globulin 4.8 H (2.6-4.0) g/dL Albumin/Globulin Ratio 0.8 L (0.9-1.6) TSH 3rd Generation 5.66 H (0.36-3.74) uIU/mL SARS-CoV-2 RNA (PRAVIN) (NEGATIVE) 05/13/20 05/13/20 05/13/20 Range/Units 12:48 12:48 12:48 WBC 4.55 (4.0-11.0) K/uL RBC 4.67 (4.50-5.90) M/uL Hgb 14.9 (13.0-17.0) g/dL Hct 43.7 (38.0-50.0) % MCV 93.6 (80.0-98.0) fL MCH 31.9 (27.0-32.0) pg MCHC 34.1 (31.0-37.0) g/dL RDW Std Deviation 46.1 (28.0-62.0) fl RDW Coeff of So 13 (11.0-15.0) % Plt Count 154 (150-400) K/uL MPV 9.70 (7.40-12.00) fL Neut % (Auto) 64.6 (48.0-80.0) % Lymph % (Auto) 25.5 (16.0-40.0) % [place] % (Auto) 9.5 (0.0-15.0) % Eos % (Auto) 0.0 (0.0-7.0) % Baso % (Auto) 0.4 (0.0-1.5) % Neut # (Auto) 2.9 (1.4-5.7) K/uL Lymph # (Auto) 1.2 (0.6-2.4) K/uL [place] # (Auto) 0.4 (0.0-0.8) K/uL Eos # (Auto) 0.0 (0.0-0.7) K/uL Baso # (Auto) 0.0 (0.0-0.1) K/uL Nucleated RBC % 0.0 /100WBC Nucleated RBCs # 0 K/uL INR APTT (18.6-31.3) SEC VBG pH 7.34 (7.31-7.41) VBG pCO2 40 (35-45) mmHG VBG pO2 29 L (30-40) mmHG VBG HCO3 21 L (22-30) mEq/L VBG Total CO2 19 L (41-51) mmol/L VBG Base Excess -4.1 L (-3.0-3.0) Lactate (0.20-2.00) mmol/L Sodium (136-148) mmol/L Potassium (3.5-5.1) mmol/L Chloride (98-107) mmol/L Carbon Dioxide (21.0-32.0) mmol/L BUN (7.0-18.0) mg/dL Creatinine (0.8-1.3) mg/dL Est Cr Clr Drug Dosing Estimated GFR (MDRD) ml/min Glucose (74-106) mg/dL Calcium (8.5-10.1) mg/dL Total Bilirubin (0.2-1.0) mg/dL AST (15-37) IU/L ALT (14-63) IU/L Alkaline Phosphatase (46-116) U/L Troponin I (0.000-0.056) ng/mL B-Natriuretic Peptide 1220 H (<100) PG/ML Total Protein (6.4-8.2) g/dL Albumin (3.4-5.0) g/dL Globulin (2.6-4.0) g/dL Albumin/Globulin Ratio (0.9-1.6) TSH 3rd Generation (0.36-3.74) uIU/mL SARS-CoV-2 RNA (PRAVIN) (NEGATIVE) 05/13/20 05/13/20 05/13/20 Range/Units 14:37 14:38 15:30 WBC (4.0-11.0) K/uL RBC (4.50-5.90) M/uL Hgb (13.0-17.0) g/dL Hct (38.0-50.0) % MCV (80.0-98.0) fL MCH (27.0-32.0) pg MCHC (31.0-37.0) g/dL RDW Std Deviation (28.0-62.0) fl RDW Coeff of So (11.0-15.0) % Plt Count (150-400) K/uL MPV (7.40-12.00) fL Neut % (Auto) (48.0-80.0) % Lymph % (Auto) (16.0-40.0) % [place] % (Auto) (0.0-15.0) % Eos % (Auto) (0.0-7.0) % Baso % (Auto) (0.0-1.5) % Neut # (Auto) (1.4-5.7) K/uL Lymph # (Auto) (0.6-2.4) K/uL [place] # (Auto) (0.0-0.8) K/uL Eos # (Auto) (0.0-0.7) K/uL Baso # (Auto) (0.0-0.1) K/uL Nucleated RBC % /100WBC Nucleated RBCs # K/uL INR APTT 30.9 (18.6-31.3) SEC VBG pH (7.31-7.41) VBG pCO2 (35-45) mmHG VBG pO2 (30-40) mmHG VBG HCO3 (22-30) mEq/L VBG Total CO2 (41-51) mmol/L VBG Base Excess (-3.0-3.0) Lactate (0.20-2.00) mmol/L Sodium (136-148) mmol/L Potassium (3.5-5.1) mmol/L Chloride (98-107) mmol/L Carbon Dioxide (21.0-32.0) mmol/L BUN (7.0-18.0) mg/dL Creatinine (0.8-1.3) mg/dL Est Cr Clr Drug Dosing Estimated GFR (MDRD) ml/min Glucose (74-106) mg/dL Calcium (8.5-10.1) mg/dL Total Bilirubin (0.2-1.0) mg/dL AST (15-37) IU/L ALT (14-63) IU/L Alkaline Phosphatase (46-116) U/L Troponin I 0.076 H* (0.000-0.056) ng/mL B-Natriuretic Peptide (<100) PG/ML Total Protein (6.4-8.2) g/dL Albumin (3.4-5.0) g/dL Globulin (2.6-4.0) g/dL Albumin/Globulin Ratio (0.9-1.6) TSH 3rd Generation (0.36-3.74) uIU/mL SARS-CoV-2 RNA (PRAVIN) POSITIVE H (NEGATIVE) Meds: Medications Generic Name Dose Route Start Last Admin Trade Name Freq PRN Reason Stop Dose Admin Heparin Sodium/Sodium Chloride 500 mls @ 21.12 mls/hr 05/13/20 14:45 05/13/20 15:13 Heparin 25,000 Units In 1/2 Ns 500 Ml IV 12 units/kg/hr TITRATE CYDNEY 21.12 mls/hr Administration Protocol 12 UNITS/KG/HR Sodium Chloride 10 ml 05/13/20 12:18 05/13/20 12:50 Saline Flush FLUSH 10 ml ASDIRECTED PRN Administration Keep Vein Open Sodium Chloride 2.5 ml 05/13/20 12:18 05/13/20 12:51 Saline Flush FLUSH 2.5 ml ASDIRECTED PRN Administration Keep Vein Open Discontinued Medications Generic Name Dose Route Start Last Admin Trade Name Moeq PRN Reason Stop Dose Admin Aspirin 324 mg 05/13/20 13:32 05/13/20 13:48 Aspirin PO 05/13/20 13:33 324 mg ONETIME ONE Administration Fentanyl 50 mcg 05/13/20 16:05 05/13/20 16:28 Fentanyl IVPUSH 05/13/20 16:06 50 mcg ONETIME ONE Administration Heparin Sodium (Porcine) 5,000 units 05/13/20 14:44 05/13/20 15:10 Heparin Sodium IVPUSH 05/13/20 14:45 4,000 units .BOLUS ONE Administration Lactated Ringer's 1,000 mls @ 999 mls/hr 05/13/20 13:32 05/13/20 13:48 Ringers, Lactated IV 05/13/20 14:32 999 mls/hr .BOLUS ONE Administration Iopamidol 77 ml 05/13/20 14:37 05/13/20 14:37 Isovue Multipack-370 (76%) IVPUSH 05/13/20 14:38 77 ml ONETIME ONE Administration Ondansetron HCl 4 mg 05/13/20 14:11 05/13/20 14:14 Zofran IVPUSH 05/13/20 14:12 4 mg ONETIME ONE Administration Ondansetron HCl Confirm 05/13/20 14:12 05/13/20 14:17 Zofran Administered 05/13/20 14:13 Not Given Dose 4 mg .ROUTE .STK-MED ONE Oxycodone/Acetaminophen 2 tab 05/13/20 12:31 05/13/20 12:48 Percocet 325-5 Mg PO 05/13/20 12:32 2 tab ONETIME ONE Administration Departure - Departure Time of Disposition: 16:19 Disposition: DC/Tfer to Acute Hospital 02 Condition: Good Clinical Impression: NSTEMI (non-ST elevated myocardial infarction), COVID-19 virus infection, Acute kidney injury - Discharge Information Referrals: PCP,None [Primary Care Provider] - Forms: ED Department Discharge Sepsis Event Note (ED) - Focused Exam Vital Signs: Vital Signs Temp Pulse Resp BP Pulse Ox 05/13/20 15:22 78 111/60 98 05/13/20 14:52 64 126/57 L 98 05/13/20 14:35 95 05/13/20 14:30 83 L 05/13/20 14:15 95 05/13/20 13:53 76 111/58 L 91 L 05/13/20 13:00 80 93 L 05/13/20 12:20 95 05/13/20 12:18 36.2 C 82 16 155/85 H 89 L - My Orders Last 24 Hours: My Active Orders 05/13/20 12:18 Cardiac Monitoring [RC] . DIRECTED EKG Documentation Completion [RC] STAT Pulse Oximetry [RC] ASDIRECTED Sodium Chloride 0.9% [Saline Flush] 10 ml FLUSH ASDIRECTED PRN Sodium Chloride 0.9% [Saline Flush] 2.5 ml FLUSH ASDIRECTED PRN 05/13/20 12:19 Saline Lock Insert [OM.PC] Stat 05/13/20 12:31 UA W/ANNE RFLX IF INDICATED [URIN] Stat 05/13/20 14:45 Heparin Sodium/0.45% NaCl [Heparin 25,000 Units in 1/2 NS 500 ML] 500 ml IV TITRATE - Assessment/Plan Last 24 Hours: My Active Orders 05/13/20 12:18 Cardiac Monitoring [RC] . DIRECTED EKG Documentation Completion [RC] STAT Pulse Oximetry [RC] ASDIRECTED Sodium Chloride 0.9% [Saline Flush] 10 ml FLUSH ASDIRECTED PRN Sodium Chloride 0.9% [Saline Flush] 2.5 ml FLUSH ASDIRECTED PRN 05/13/20 12:19 Saline Lock Insert [OM.PC] Stat 05/13/20 12:31 UA W/ANNE RFLX IF INDICATED [URIN] Stat 05/13/20 14:45 Heparin Sodium/0.45% NaCl [Heparin 25,000 Units in 1/2 NS 500 ML] 500 ml IV TITRATE
[2020-05-13] MEDS ORDERED: Sodium Chloride 0.9% 10 ML Syringe FLUSH PRN (12:18)
[2020-05-13] MEDS ORDERED: Sodium Chloride 0.9% 2.5 ML Syringe FLUSH PRN (12:18)
[2020-05-13] MEDS ORDERED: Acetaminophen/oxyCODONE 325-5 MG Tab PO ONE (12:31)
--- NOTE | 2020-05-13 13:12 | CR ---
INDICATION: Pt w/dyspnea, weakness. TECHNIQUE: Chest 1 view COMPARISON: July 05, 2019, July 01, 2019 FINDINGS: Postoperative changes of the mediastinum. Cardiac silhouette enlarged. Tortuosity aorta. Vascular calcifications. Pacer wires intact. Mild elevation right lateral hemidiaphragm. Left basilar atelectasis. IMPRESSION: No acute findings and no significant changes from the prior exams. Dictated by Theron Soriano MD @ May 13 2020 1:08PM Signed by Dr. Theron Soriano @ May 13 2020 1:12PM
[2020-05-13 13:30] LABS: BLOOD UREA NITROGEN,BUN 32 mg/dL (7.0-18.0); CARBON DIOXIDE,CO2 23.3 mmol/L (21.0-32.0); CHLORIDE,CL 99 mmol/L (98-107); GLUCOSE RANDOM 103 mg/dL (74-106); POTASSIUM,K 4.5 mmol/L (3.5-5.1); SODIUM,NA 133 mmol/L (136-148)
[2020-05-13] MEDS ORDERED: Lactated Ringers 1,000 ML IV ONE (13:32)
[2020-05-13] MEDS ORDERED: Aspirin 81 MG Tab.Chew PO ONE (13:32)
[2020-05-13] MEDS ORDERED: Ondansetron 4 MG/2 ML SDV IVPUSH ONE (14:11)
[2020-05-13] MEDS ORDERED: Ondansetron 4 MG/2 ML SDV ONE (14:12)
[2020-05-13] MEDS ORDERED: Iopamidol 755 MG/ML 500 ML Multipack Bottle IVPUSH ONE (14:37)
[2020-05-13] MEDS ORDERED: Heparin Sodium 5,000 Units/ML Vial IVPUSH ONE (14:44)
[2020-05-13] MEDS ORDERED: Heparin Sodium/0.45% NaCl 500 ML IV SCH (14:45)
--- NOTE | 2020-05-13 14:55 | CT ---
INDICATION: Dyspnea. Tachypnea. CHF. Rule out pulmonary embolism. TECHNIQUE: Volumetric helical scanning of the thorax was performed during infusion of 77 cc of Isovue 370 contrast material IV, timing optimized for pulmonary arterial opacification. Coronal and sagittal reconstructions were obtained. COMPARISON: Chest CT 07/01/2019. FINDINGS: The images are of acceptable quality and demonstrate uniform vascular enhancement within the pulmonary arteries. No pulmonary arterial filling defect is identified. The heart is mildly enlarged. A prosthetic aortic valve is demonstrated as well as a cardiac pacer. Calcified coronary arterial plaque is again demonstrated. Ground-glass infiltrates are present bilaterally, most notably in the lower lobes. These are largely subpleural and raise concern of COVID-19 pneumonia. No pleural effusion is demonstrated. Calcified pleural plaques are noted on the left. No airway abnormality is evident. No mediastinal or hilar lymphadenopathy is demonstrated. Images of the upper abdomen are unremarkable except for stone in the gallbladder. IMPRESSION: 1. Negative for pulmonary embolism. 2. Ground-glass infiltrates bilaterally, most notable in the lower lobes, and largely subpleural in location. The appearance raises concern of COVID-19 pneumonia. 3. Mild cardiomegaly, prosthetic aortic valve and cardiac pacer. 4. Cholelithiasis. Please note that all CT scans at this facility use dose modulation, iterative reconstruction, and/or weight-based dosing when appropriate to reduce radiation dose to as low as reasonably achievable. Dictated by Domenico Branch MD @ May 13 2020 2:46PM Signed by Dr. Domenico Branch @ May 13 2020 2:53PM
[2020-05-13] MEDS ORDERED: fentaNYL 50 MCG/ML SDV IVPUSH ONE (16:05)
[2020-05-13 17:46] VITALS: BP 146/57; PULSE 63
== END 2020-05-13 17:40 ==
LOC: MW.ED 12:07
DX: U07.1 COVID-19 (principal); I21.4 Non-ST elevation (NSTEMI) myocardial infarction; N17.9 Acute kidney failure, unspecified; I25.10 Atherosclerotic heart disease of native coronary artery without angina pectoris; I13.0 Hypertensive heart and chronic kidney disease with heart failure and stage 1 through stage 4 chronic kidney disease, or unspecified chronic kidney disease; N18.9 Chronic kidney disease, unspecified; I50.9 Heart failure, unspecified; M19.90 Unspecified osteoarthritis, unspecified site; J44.9 Chronic obstructive pulmonary disease, unspecified; Z88.8 Allergy status to other drugs, medicaments and biological substances; Z88.2 Allergy status to sulfonamides; Z79.82 Long term (current) use of aspirin; Z79.899 Other long term (current) drug therapy; Z79.02 Long term (current) use of antithrombotics/antiplatelets
CPT/HCPCS: 36415; 71045; 71275; 80053; 82803; 83605; 83880; 84443; 84484; 85025; 85610; 85730; 87804; 93005; 96365; 96366; 96375; 99285; A9270; J1644; J2405; J3010; J7120; Q9967; U0002; 93010; 99284